=== PATIENT | female | born 1965 | race Caucasian/White ===

== ENCOUNTER 2016-09-06 06:27 | Day surgery (SDC) | payer OTHER ==
[~2016-09-06] VITALS: Ht 160 cm; Wt 49.1 kg
[~2016-09-06 06:27] MED LIST: CeFAZolin 1 GM/DEXTROSE 50 ML IV ONE; SODIUM CHLORIDE 0.9% 1,000 ML IV ONE
[2016-09-06] MEDS ORDERED: LORazepam 2 MG/ML VIAL IVP PRN (07:00)
[2016-09-06] MEDS ORDERED: CeFAZolin 1 GM/DEXTROSE 50 ML IV ONE (07:00)
[2016-09-06 07:19] LABS: BASOPHILS % (AUTO) 1.4 % (0.0-2.0); EOSINOPHILS % (AUTO) 7.3 % (1.0-6.0); HEMATOCRIT 34.8 % (36-46); HEMOGLOBIN 11.8 g/dL (12.0-16.0); LYMPHOCYTES # (AUTO) 0.9 K/uL (1.0-4.8); LYMPHOCYTES % (AUTO) 27.8 % (22.0-44.0); MEAN CORPUSCULAR HEMOGLOBIN 32.2 pg (26.0-34.0); MEAN CORPUSCULAR VOLUME 95 fL (80-100); MONOCYTES # (AUTO) 0.3 K/uL (0.1-1.0); MONOCYTES % (AUTO) 7.7 % (2.0-9.0); NEUTROPHILS # (AUTO) 1.8 K/uL (1.8-7.7); NEUTROPHILS % (AUTO) 55.8 % (40.0-70.0); PLATELET COUNT (AUTO) 177 K/uL (150-450); RED BLOOD CELL COUNT(AUTO) 3.67 MIL/uL (4.00-5.20); RED CELL DISTRIBUTION WIDTH 17.4 % (11.5-14.5); WHITE BLOOD COUNT (AUTO) 3.3 K/uL (4.5-11.0)
[2016-09-06] MEDS ORDERED: FentaNYL CITRATE-PF 100 MCG/2 ML VIAL ONE (07:47)
[2016-09-06] MEDS ORDERED: MIDAZOLAM HCL 2 MG/2 ML VIAL ONE (07:47)
[2016-09-06] MEDS ORDERED: LIDOCAINE HCL/PF 1% 30 ML VIAL ONE (07:47)
[2016-09-06] MEDS ORDERED: FentaNYL CITRATE-PF 100 MCG/2 ML VIAL IVP ONE (09:10)
[2016-09-06 09:18] LABS: RBC MORPHOLOGY COMMENT ABNORMAL RBC MORPH
[2016-09-06] MEDS ORDERED: SODIUM CHLORIDE 0.9% 1,000 ML IV SCH (10:01)
[2016-09-06] MEDS ORDERED: OxyCODONE HCL/ACETAMINOPHEN 5-325 MG TABLET PO PRN ×2 (10:15)
[2016-09-06] MEDS ORDERED: HYDROmorphone HCL 2 MG TABLET PO ONE (10:15)
[2016-09-06] MEDS ORDERED: HYDROmorphone 2 MG/ML SYRINGE IVP PRN (10:15)
[2016-09-06] MEDS ORDERED: ACETAMINOPHEN 500 MG TABLET ONE (10:29)
[2016-09-06] MEDS ORDERED: ACETAMINOPHEN 500 MG TABLET PO ONE (10:45)
== END 2016-09-06 11:05 | disposition home or self-care (01) ==
LOC: SDS 06:27 → EDSTATUS 08:00 → SDS 11:05
PROVIDERS: ATTEND Radiology Diagnostic Radiology
DX: C50.912 Malignant neoplasm of unspecified site of left female breast (principal); R59.0 Localized enlarged lymph nodes; Z17.0 Estrogen receptor positive status [ER+]; Z98.890 Other specified postprocedural states
CPT/HCPCS: 19105 ×2; 36415; 85025; 93005; 99152; 99153; C2618; J0690; J3010; J3490; J7030; J2250